=== PATIENT | female | born 1985 | race Caucasian/White ===

== ENCOUNTER 2017-07-02 15:49 | Inpatient (IN) | payer BC ==
[2017-07-02 17:23] LABS: ABS Basophils 0 10^3/ul (0-0.2); ABS Eosinophils 0 10^3/ul (0-0.6); ABS Lymphocytes 1.3 10^3/ul (1.0-4.8); ABS Monocytes 0.7 10^3/ul (0-0.8); ABS Neutrophils 7.1 10^3/ul (1.5-7.7); ABS Nucleated RBC 0 10^3/ul; Eosinophil % 0.5 % (0-6); Hematocrit 34 % (35-47); Hemoglobin 12.1 g/dl (12.0-16.0); Mean Corpuscular HGB Conc 36 g/dl (31-36); Mean Corpuscular Hemoglobin 33 pg (27-31); Mean Corpuscular Volume 94 fL (80-97); Mean Platelet Volume 8 um3 (7.4-10.4); Nucleated Red Blood Cells % 0; Platelet Count 194 10^3/ul (150-450); Red Blood Count 3.62 10^6/ul (4.0-5.4); Red Cell Distribution Width 12 % (10.5-15); White Blood Count 9.2 10^3/ul (3.5-10.8)
[2017-07-02] MEDS ORDERED: OBEPIDURAL* 250 ML EPIDURAL ONE (18:58)
[2017-07-02] MEDS ORDERED: EPHEDrine (Pressors)* 50 MG/ML VIAL IV PUSH PRN ×2 (20:23)
[2017-07-02] MEDS ORDERED: Famotidine TAB* 20 MG PO PRN (20:23)
[2017-07-02] MEDS ORDERED: Sodium Citrate/Citric Acid* 15 ML UDC PO PRN (20:23)
[2017-07-02] MEDS ORDERED: Phenylephrine IV* 40 MCG/ML 10 ML SYRINGE IV PUSH PRN ×2 (20:23)
[2017-07-02] MEDS ORDERED: Hetastarch in NS* 500 ML IV PRN (20:23)
[2017-07-03] MEDS ORDERED: Oxytocin in LR* 20 UNITS/1,000 ML BAG IVPB ONE (06:03)
[2017-07-03] MEDS ORDERED: Witch Hazel PAD* JAR TOPICAL PRN (06:27)
[2017-07-03] MEDS ORDERED: Dibucaine 1% 28.35 GM TUBE PR PRN (06:27)
[2017-07-03] MEDS ORDERED: Acetaminophen TAB* 325 MG PO PRN (06:27)
[2017-07-03] MEDS ORDERED: Glycerin ADULT SUPP PR PRN (06:27)
[2017-07-03] MEDS ORDERED: Oxytocin in LR* 20 UNITS/1,000 ML BAG IVPB SCH (07:00)
[2017-07-03] MEDS: Docusate CAP* 100 MG PO SCH ×3 (09:14→22:04)
[2017-07-03] MEDS: Ibuprofen TAB* 600 MG PO PRN ×3 (09:14→22:02)
[2017-07-03] MEDS ORDERED: Ammonia Inhalant* 1 EA AMP ONE (11:39)
--- NOTE | 2017-07-03 13:18 | PTEDU ---
Patient Name: MARLO GARDUNO MARLO GARDUNO selected video: Follow Me Mum: [employer] to view on 07/03/19 18 at 1:17:55 PM from [id number]
[2017-07-04] MEDS: Ibuprofen TAB* 600 MG PO PRN ×3 (03:52→20:49)
[2017-07-04 07:24] LABS: ABS Basophils 0.1 10^3/ul (0-0.2); ABS Eosinophils 0.1 10^3/ul (0-0.6); ABS Lymphocytes 1.8 10^3/ul (1.0-4.8); ABS Monocytes 0.8 10^3/ul (0-0.8); ABS Neutrophils 11.1 10^3/ul (1.5-7.7); ABS Nucleated RBC 0 10^3/ul; Eosinophil % 0.6 % (0-6); Hematocrit 29 % (35-47); Hemoglobin 10.4 g/dl (12.0-16.0); Lymphocyte % 12.9 % (25-47); Mean Corpuscular HGB Conc 36 g/dl (31-36); Mean Corpuscular Hemoglobin 34 pg (27-31); Mean Corpuscular Volume 95 fL (80-97); Mean Platelet Volume 8 um3 (7.4-10.4); Nucleated Red Blood Cells % 0; Platelet Count 178 10^3/ul (150-450); Red Blood Count 3.07 10^6/ul (4.0-5.4); Red Cell Distribution Width 12 % (10.5-15); White Blood Count 13.8 10^3/ul (3.5-10.8)
[2017-07-04] MEDS: Docusate CAP* 100 MG PO SCH ×3 (08:58→20:49)
[2017-07-04] MEDS: Ferrous Gluconate TAB* 324 MG TAB PO SCH ×2 (08:58→20:49)
[2017-07-04] MEDS ORDERED: RHO D Immune Globulin (HUMAN)* 300 MCG = 1,500 I.U. INJ IM ONE (14:38)
[2017-07-05] MEDS: OBEPIDURAL* 250 ML EPIDURAL SCH ×2 (00:34→00:38)
[2017-07-05] MEDS: Simethicone TAB* 80 MG TAB.CHEW PO SCH ×4 (00:34→00:37)
[2017-07-05] MEDS: Ibuprofen TAB* 600 MG PO PRN (03:48)
[2017-07-05 07:36] VITALS: BP 98/58
== END 2017-07-05 11:48 | disposition home or self-care (01) | DRG 560 ==
LOC: MCHOBOUT 15:49 → MCHOB 16:20
PROVIDERS: ADMIT Obstetrics & Gynecology; ATTEND Obstetrics & Gynecology
PROC: 10E0XZZ Delivery of Products of Conception, External Approach (ICD-10-PCS; principal; 2017-07-02)
PROC: 10907ZC Drainage of Amniotic Fluid, Therapeutic from Products of Conception, Via Natural or Artificial Opening (ICD-10-PCS; 2017-07-02)
PROC: 0KQM0ZZ Repair Perineum Muscle, Open Approach (ICD-10-PCS; 2017-07-02)
DX: O40.3XX0 Polyhydramnios, third trimester, not applicable or unspecified (principal); D64.9 Anemia, unspecified; O70.1 Second degree perineal laceration during delivery; O90.81 Anemia of the puerperium; Z3A.39 39 weeks gestation of pregnancy; Z37.0 Single live birth
CPT/HCPCS: 36415; 84112; 85025; 85461; 86850; 86870; 86880; 86900; 86901; A9270-GY; J2790

== ENCOUNTER 2018-12-03 04:51 | Emergency (ER) | payer BC ==
--- NOTE | 2018-12-03 05:06 | ED ---
- HPI Summary HPI Summary: A 33 y/o female who is 6 weeks and 4 days presents to [facility] with a chief complaint of vaginal bleeding for the past few days. She also reports intermittent abdominal cramping, rating her pain as a 3/10 in severity. She notes that her vaginal bleeding has been more than a usual period. Her estimated due date is 07/04/19. She is taking a vitamin and is taking no other medications. She says that she has had one other and has a child at home. - History of Current Complaint Chief Complaint: EDOBProblems Stated Complaint: AND BLEEDING PER PT Hx Obtained From: Patient Chief Complaint: Pain, Vaginal Bleeding Onset/Duration: Started Days Ago, Still Present Timing: Intermittent Severity: Mild Current Severity: Mild Pain Intensity: 3 - out of 10 Location of Pain: Other: - lower abdominal pain, suprapubic Character: Cramping Aggravating Factors: Nothing Alleviating Factors: Nothing Associated Signs and Symptoms: Positive: Other: - lower abdominal pain. Negative: Fever - Assessment SAB: 0 IEA: 0 - Allergies/Home Medications Allergies/Adverse Reactions: Allergies Allergy/AdvReac Type Severity Reaction Status Date / Time No Known Allergies Allergy Verified 07/02/17 16:16 PMH/Surg Hx/FS Hx/Imm Hx Sensory History: Denies: Hx Deafness EENT History: Denies: Hx Deafness Infectious Disease History: No Infectious Disease History: Denies: Traveled Outside the [place] in Last 30 Days - Family History Known Family History: Positive: Other - no FHx anesthesia reaction - Social History Alcohol Use: None Substance Use Type: Reports: None Smoking Status (MU): Never Smoked Tobacco Have You Smoked in the Last Year: No Review of Systems Negative: Fever Positive: Abdominal Pain Positive: other - positive: vaginal bleeding All Other Systems Reviewed And Are Negative: Yes Physical Exam - Summary Physical Exam Summary: Appearance: Well-appearing, Well-nourished, lying in bed comfortably Skin: Warm, dry, no obvious rash Eyes: sclera anicteric, no conjunctival pallor ENT: mucous membranes moist, pharynx appears normal Neck: Supple, nontender Respiratory: Clear to auscultation, no signs of respiratory distress Cardiovascular: Normal S1, S2. No murmurs. Normal distal pulses in tibial and radial bilaterally. Abdomen: Soft, nontender, normal active bowel sounds present Musculoskeletal: Normal, Strength/ROM Intact Neurological: A&Ox3, awake and alert, mentation is normal, speech is fluent and appropriate Psychiatric: affect is normal, does not appear anxious or depressed - Physical Exam Triage Information Reviewed: Yes Vital Signs Reviewed: Yes Diagnostics - Vital Signs Vital Signs Temp Pulse Resp BP Pulse Ox 12/03/18 04:55 99.2 F 84 30 113/70 100 - Laboratory Result Diagrams: 12/03/18 05:29 12/03/18 05:29 Lab Statement: Any lab studies that have been ordered have been reviewed, and results considered in the medical decision making process. Course/Dx - Course Course Of Treatment: A 33 y/o female who is 6 weeks and 4 days presents to [facility] with a chief complaint of vaginal bleeding for the past few days. She also reports intermittent abdominal cramping. The physical exam was unremarkable. In the ED course the patient was given Rhogam. Blood work and chemistries obtained and are WNL. This patient will be signed out from Dr. Hernandez to Dr. Alvarado upon shift change at 07:00 12/03/18 pending pelvic ultrasound. - Diagnoses Provider Diagnoses: Threatened Discharge - Sign-Out/Discharge Documenting (check all that apply): Sign-Out Patient Signing out patient TO: Leila Alvarado - pending pelvic ultrasound Patient Received Moderate/Deep Sedation with Procedure: No - Discharge Plan Condition: Stable Referrals: Toy Ramírez MD [Primary Care Provider] - - Billing Disposition and Condition Condition: STABLE - Attestation Statements Document Initiated by Scribe: Yes Documenting Scribe: Lucio Felix Provider For Whom Aster is Documenting (Include Credential): Russell Hernandez MD [employer] Attestation: Lucio So, scribed for Russell Hernandez MD on 12/03/18 at 0630. Scribe Documentation Reviewed: Yes Provider Attestation: The documentation as recorded by the Lucio valdez accurately reflects the service I personally performed and the decisions made by me, Russell Hernandez MD Status of Scribe Document: Viewed
[2018-12-03 05:38] LABS: ABS Basophils 0.1 10^3/ul (0-0.2); ABS Eosinophils 0.1 10^3/ul (0-0.6); ABS Lymphocytes 1.4 10^3/ul (1.0-4.8); ABS Monocytes 0.4 10^3/ul (0-0.8); ABS Neutrophils 5.9 10^3/ul (1.5-7.7); Eosinophil % 1.1 %; Hematocrit 34 % (35-47); Hemoglobin 12.1 g/dL (12.0-16.0); Lymphocyte % 17.8 %; Mean Corpuscular HGB Conc 35 g/dL (31-36); Mean Corpuscular Hemoglobin 32 pg (27-31); Mean Corpuscular Volume 91 fL (80-97); Mean Platelet Volume 7.1 fL (7.4-10.4); Platelet Count 189 10^3/uL (150-450); Red Blood Count 3.77 10^6 /uL (3.70-4.87); Red Cell Distribution Width 12 % (10-15); White Blood Count 7.9 10^3/uL (3.5-10.8)
[2018-12-03 05:58] LABS: Albumin 4.3 g/dL (3.2-5.2); BUN/Creatinine Ratio 14.5 (8-20); EGFR Non-African American 128.9 (>60); Globulin 2.1 g/dL (2-4); Potassium 3.6 mmol/L (3.5-5.0); Total Bilirubin 0.8 mg/dL (0.2-1.0); Total Protein 6.4 g/dL (6.4-8.9)
[2018-12-03] MEDS ORDERED: RHO D Immune Globulin (HUMAN)* 300 MCG = 1,500 I.U. INJ IM SCH (06:00)
--- NOTE | 2018-12-03 07:00 | ED ---
Progress - Progress Note Progress Note: Patient was received as a sign out from Dr. Hernandez to Dr. Brody at 0700 12/03/18 shift change pending pelvis US. 0743 - Peter Quinn, from pharmacy called to confirm that the patient is Rh negative. Rh negative confirmed by blood bank testing. Patient to be given RHOgam; it is noted that there will be no harm to patient if given full dose, pharmacy only carries regular doses. 0800 - Patient arrived after experiencing large amounts of vaginal bleeding. She is concerned for a miscarriage. Patient is 9 wks 4 days , . She notes that she has had some vaginal bleeding with previous but not the amount that she has recently been experiencing. Patient is Rh negative. Patient reports that there was no tissue in blood but states she is currently cramping. Patient reports no other problems. Patient is not tachycardic with a regular rhythm. Low BP of 99/63 which patient claims is her baseline. 02 sat on RA of 99% and pulse of 69. US is still pending and patient will receive a Rogam shot. 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 Dr. Hobbs is OBGYN. She notes that she had an US at 6 weeks, states that she had previously had irregular periods after coming off of control. PELVIC US IMPRESSION: THE ENDOCERVIX APPEARS THICKENED AND HETEROGENEOUS, THIS LIKELY REPRESENTS AN IN PROGRESS. THERE IS NO VASCULARIZED TISSUE WITHIN THE ENDOMETRIAL CAVITY TO SUGGEST RETAINED PRODUCTS OF CONCEPTION. RECOMMEND CORRELATION WITH SERIAL BETA HCG LEVELS AND FOLLOW-UP IMAGING. THIS REPORT WAS REVIEWED BY DR. BRODY. 09 - Patient was updated on US findings. She will be discharged to home to follow up with Dr. Hobbs tomorrow. Strict return precautions given. Patient understands and agrees with discharge plan. Re-Evaluation - Re-Evaluation 0800 Re-Evaluation Time: 08:00 Comment: Patient arrived after waking up to large amounts of vaginal bleeding at 0730 in the morning. Patient reports that this is an abnormal amount of bleeding. She is concerned for a miscarriage. Patient is 9 wks 4 days , . Patient is RH negative. Patient reports that there was no tissue in blood but states she is currently cramping. Patient reports no other problems. Patient is not tachycardic with a regular rhythm. Low BP of 99/63 which patient claims is her baseline. 02 sat on RA of 99% and pulse of 69. US is still pending and patient will receive a Rogam shot. 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 Dr. Hobbs is OBGYN. She notes that she had an US at 6 weeks, states that she had previously had irregular periods after coming off of control. Second Eval Re-Evaluation Time: 09:58 Comment: 0958 - Patient was updated on US findings. She will be discharged to home to follow up with Dr. Hobbs tomorrow. Strict return precautions given. Patient understands and agrees with discharge plan. Course/Dx - Course Course Of Treatment: Patient was received as a sign out from Dr. Hernandez to Dr. Brody at 0700 12/03/18 shift change pending pelvis US. 0800 - Patient arrived after experiencing large amounts of vaginal bleeding. She is concerned for a miscarriage. Patient is 9 wks 4 days , . She notes that she has had some vaginal bleeding with previous but not the amount that she has recently been experiencing. Patient is RH negative. Patient reports that there was no tissue in blood but states she is currently cramping. Dr. Hobbs is OBGYN. Rhogam shot was given. PELVIC US IMPRESSION: THE ENDOCERVIX APPEARS THICKENED AND HETEROGENEOUS, THIS LIKELY REPRESENTS AN IN. PROGRESS. THERE IS NO VASCULARIZED TISSUE WITHIN THE ENDOMETRIAL CAVITY TO SUGGEST. RETAINED PRODUCTS OF CONCEPTION. RECOMMEND CORRELATION WITH SERIAL BETA HCG LEVELS AND. FOLLOW-UP IMAGING. 0958 - Patient was updated on US findings. She will be discharged to home to follow up with Dr. Hobbs tomorrow. Strict return precautions given. Patient understands and agrees with discharge plan. - Diagnoses Provider Diagnoses: Threatened Discharge - Sign-Out/Discharge Documenting (check all that apply): Patient Departure - discharge Patient Received Moderate/Deep Sedation with Procedure: No - Discharge Plan Condition: Stable Disposition: HOME Patient Education Materials: Threatened Miscarriage (ED) Referrals: Toy Ramírez MD [Primary Care Provider] - Dwight Hobbs MD [Medical Doctor] - 2 Days Additional Instructions: We have given you a copy of your ultrasound, which shows a probable miscarriage. You received Rhogam while you were in the ER. Please call Dr. Hobbs to advise him that we have diagnosed you with this. You will need to be followed with serial HCG's, usually every 3 days. Please do not put anything in your vagina, so no tampons, no intercourse until cleared by Dr. Hobbs. Please return to the ER if you are bleeding heavily, such as a pad an hour, or any new or worsening symptoms. - Billing Disposition and Condition Condition: STABLE Disposition: Home - Attestation Statements Document Initiated by Aster: Yes Documenting Scribe: DEBRA MONTE Provider For Whom Scribe is Documenting (Include Credential): TRUE BRODY MD Scribe Attestation: IDEBRA, scribed for TRUE BRODY MD on 12/05/18 at 1642. Scribe Documentation Reviewed: Yes Provider Attestation: The documentation as recorded by the DEBRA valdez accurately reflects the service I personally performed and the decisions made by me, TRUE BRODY MD Status of Scribe Document: Viewed
[2018-12-03 11:07] VITALS: BP 102/63
== END 2018-12-03 10:20 | disposition home or self-care (01) ==
LOC: ED 04:51
DX: O20.0 Threatened abortion (principal); Z3A.01 Less than 8 weeks gestation of pregnancy
CPT/HCPCS: 36415; 76856; 80053; 84702; 85025; 86850; 86900; 86901; 96372; 99283; J2790